=== PATIENT | male | born 1980 | race Caucasian/White ===

== ENCOUNTER 2017-06-04 02:35 | Emergency (ER) | payer OTHER, BC ==
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
[2017-06-04] MEDS ORDERED: fentaNYL 100 MCG/2 ML SDV IVPUSH ONE (02:59)
[2017-06-04] MEDS ORDERED: Sodium Chloride 0.9% 1,000 ML IV SCH (03:00)
[2017-06-04] MEDS ORDERED: Sodium Chloride 0.9% 1,000 ML ONE (03:06)
[2017-06-04] MEDS ORDERED: Diphtheria,Pertussis(Acell),Tetanus Vaccine 0.5 ML SDV IM ONE (03:23)
--- NOTE | 2017-06-04 17:46 | CR ---
Chest: Portable view of the chest was obtained. Comparison: No prior chest x-ray. Heart size and mediastinum are normal. Lungs are clear. Bony structures are grossly intact. Impression: 1. Nothing acute is identified on portable chest x-ray. Diagnostic code #1
== END 2017-06-04 04:02 ==
LOC: JD.ED 02:35
DX: T20.20XA Burn of second degree of head, face, and neck, unspecified site, initial encounter (principal); T23.272A Burn of second degree of left wrist, initial encounter; T23.271A Burn of second degree of right wrist, initial encounter; T22.221A Burn of second degree of right elbow, initial encounter; T24.221A Burn of second degree of right knee, initial encounter; T24.222A Burn of second degree of left knee, initial encounter; Z23 Encounter for immunization; Z79.899 Other long term (current) drug therapy; W40.1XXA Explosion of explosive gases, initial encounter
CPT/HCPCS: 36415; 71045; 80053; 85025; 90471; 90715; 96361; 96374; 99285; G0390; J3010; J7040

== ENCOUNTER 2017-08-27 09:24 | Emergency (ER) | payer BC, OTHER ==
--- NOTE | 2017-08-27 10:30 | EDM.PDOC ---
ED HPI GENERAL MEDICAL PROBLEM - General Chief Complaint: Respiratory Problem Stated Complaint: [facility] Time Seen by Provider: 08/27/17 10:05 Source of Information: Reports: Patient, RN Notes Reviewed - History of Present Illness INITIAL COMMENTS - FREE TEXT/NARRATIVE: 36-year-old male that has some shortness of breath, lightheadedness and dizziness at home shortly after going to bed this morning. 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 He was just getting settled in the bed about 2 hours ago when he had onset of these symptoms. He felt very short of breath, felt weak , lightheaded and dizzy. Pass out. He has not been having chest pain. Symptoms resolved while writing here to the ED by ambulance. Does no longer feels short of breath. No longer week lightheaded or dizzy. No abdominal pain nausea or vomiting. History of asthma. He is not diabetic. No history of coronary artery disease. face Pain Score (Numeric/FACES): 3 - Related Data Allergies Allergy/AdvReac Type Severity Reaction Status Date / Time No Known Allergies Allergy Verified 08/27/17 09:29 Home Meds: Home Meds Albuterol [Ventolin 2 MG/5 ML] 2 puff INH Q4H PRN 06/04/17 [History] Allopurinol [Zyloprim] 200 mg PO DAILY 06/04/17 [History] Fluticasone/Salmeterol [Advair 250-50 Diskus] 1 inh INH BID 06/04/17 [History] Fexofenadine [Erinn] 180 mg PO DAILY 08/27/17 [History] Past Medical History Cardiovascular History: Reports: Hypertension Respiratory History: Reports: Asthma Musculoskeletal History: Reports: Gout - Past Surgical History HEENT Surgical History: Reports: Tonsillectomy Social & Family History - Family History Family Medical History: Noncontributory - Tobacco Use Smoking Status *Q: Current Every Day Smoker Years of Tobacco use: 5 Packs/Tins Daily: 0.2 - Caffeine Use Caffeine Use: Reports: None - Recreational Drug Use Recreational Drug Use: No ED ROS GENERAL - Review of Systems Review Of Systems: See Below Constitutional: Denies: Fever, Chills, Diaphoresis HEENT: Denies: Throat Pain Respiratory: Reports: Shortness of Breath. Denies: Pleuritic Chest Pain (Gone) , Cough Cardiovascular: Denies: Chest Pain GI/Abdominal: Denies: Abdominal Pain, Nausea, Vomiting Musculoskeletal: Denies: Shoulder Pain, Arm Pain, Back Pain Skin: Reports: No Symptoms Neurological: Reports: Dizziness. Denies: Numbness, Tingling, Trouble Speaking , Difficulty Walking ED EXAM, GENERAL - Physical Exam Exam: See Below General Appearance: Alert, No Apparent Distress, Anxious Eye Exam: Bilateral Eye: PERRL Throat/Mouth: Normal Inspection, Normal Oropharynx Head: Atraumatic Neck: Supple, Full Range of Motion Respiratory/Chest: No Respiratory Distress, Lungs Clear, Normal Breath Sounds, No Accessory Muscle Use Cardiovascular: Regular Rate, Rhythm GI/Abdominal: Soft, Non-Tender Extremities: Normal Inspection, Normal Range of Motion. No: Pedal Edema, Leg Pain, Increased Warmth, Redness Neurological: Alert, Oriented, No Motor/Sensory Deficits Skin Exam: Warm, Dry, Normal Color Course - Vital Signs Last Recorded V/S: Last Vital Signs Temp 98.1 F 08/27/17 09:31 Pulse 95 08/27/17 09:31 Resp 14 08/27/17 09:31 BP 158/92 H 08/27/17 09:31 Pulse Ox 98 08/27/17 09:31 - Orders/Labs/Meds Orders: Active Orders 24 hr Category Date Time Status Chest 1V Frontal [CR] Stat Exams 08/27/17 10:15 Taken Labs: Laboratory Tests 08/27/17 08/27/17 Range/Units 10:30 10:30 WBC 10.37 H (4.23-9.07) K/mm3 RBC 4.86 (4.63-6.08) M/mm3 Hgb 14.3 (13.7-17.5) gm/L Hct 43.4 (40.1-51.0) % MCV 89.3 (79.0-92.2) fl MCH 29.4 (25.7-32.2) pg MCHC 32.9 (32.2-35.5) g/dl RDW Std Deviation 44.5 H (35.1-43.9) fL Plt Count 269 (163-337) K/mm3 MPV 9.3 L (9.4-12.3) fl Neut % (Auto) 67.3 (34.0-67.9) % Lymph % (Auto) 21.5 L (21.8-53.1) % Morris % (Auto) 8.7 (5.3-12.2) % Eos % (Auto) 2.1 (0.8-7.0) Baso % (Auto) 0.2 (0.1-1.2) % Neut # (Auto) 6.98 H (1.78-5.38) K/mm3 Lymph # (Auto) 2.23 (1.32-3.57) K/mm3 Morris # (Auto) 0.90 H (0.30-0.82) K/mm3 Eos # (Auto) 0.22 (0.04-0.54) K/mm3 Baso # (Auto) 0.02 (0.01-0.08) K/mm3 D-Dimer, Quantitative 0.43 (0.19-0.50) mg/L - Re-Assessments/Exams Free Text/Narrative Re-Assessment/Exam: 08/27/17 12:11 Chest x-ray normal, CBC, d-dimer normal sats been running 98-100% while here in the ED. Sinus rhythm, no ectopy. Discharge instructions as documented Departure - Departure Time of Disposition: 11:21 Disposition: Home, Self-Care 01 Condition: Fair Clinical Impression: Dizziness Dyspnea Qualifiers: Dyspnea type: unspecified Qualified Code(s): R06.00 - Dyspnea, unspecified - Discharge Information Instructions: Shortness of Breath, Adult, Dizziness, [id number] Referrals: PCP,Not In Area [Primary Care Provider] - Forms: ED Department Discharge Additional Instructions: Your heart and lungs are check felt well while here in the ED today. I would recommend a healthy diet and also to work at losing some of the extra weight that you are carrying. Research the Mediterranean diet. That emphasized a lot of fruit and vegetables. Avoid sugar, high carbohydrate foods as much as possible. Begin a regular exercise program. Follow-up with your regular medical provider if having any further unusual symptoms. Return to ED as needed if symptoms worsening in any way. - My Orders Last 24 Hours: My Active Orders 08/27/17 10:15 Chest 1V Frontal [CR] Stat - Assessment/Plan Last 24 Hours: My Active Orders 08/27/17 10:15 Chest 1V Frontal [CR] Stat
--- NOTE | 2017-08-28 08:18 | CR ---
Chest: Frontal view of the chest was obtained. Comparison: Prior chest x-ray of 06/04/17. Heart size and mediastinum are normal. Lungs are clear. Bony structures are grossly intact. Impression: 1. Nothing acute is seen on frontal chest x-ray. Diagnostic code #1
== END 2017-08-27 11:40 | disposition home or self-care (01) ==
LOC: JD.ED 09:24
DX: R06.00 Dyspnea, unspecified (principal); R42 Dizziness and giddiness; I10 Essential (primary) hypertension; J45.909 Unspecified asthma, uncomplicated; F17.210 Nicotine dependence, cigarettes, uncomplicated; Z79.899 Other long term (current) drug therapy
CPT/HCPCS: 36415; 71045; 71045-26; 85025; 85379; 99283; 99285